=== PATIENT | female | born 1970 | race American Indian/Alaskan Native ===

== ENCOUNTER 2017-05-08 09:03 | Outpatient (CLI) | payer OTHER ==
--- NOTE | 2017-05-08 11:22 | Mammography Report ---
BILATERAL MAMMOGRAM with CAD: HISTORY: Cancer screening. Comparison study is dated February 18, 2016. FINDINGS: The breast tissue is heterogeneously dense, which could obscure detection of small masses (approximately 50%-75% glandular). No mass, distortion, suspicious calcification, or skin change is seen. IMPRESSION: Negative mammogram. There is no mammographic evidence of malignancy. RECOMMENDATION: Follow-up per ACS guidelines. BI-RADS CATEGORY: 1 = Negative ACR BI-RADS MAMMOGRAPHIC CODES: 0 = Needs additional imaging evaluation; 1 = Negative; 2 = Benign; 3 = Probably benign; 4 = Suspicious; 5 = Malignant; 6 = Known biopsy-proven malignancy COMMENT: 1. Dense breast tissue, i.e., adenosis, fibrocystic changes, etc., may obscure an underlying neoplasm. 2. Approximately 10% of cancers are not detected with mammography. 3. A negative mammography report should not delay biopsy if a clinically suspicious mass is present. COMMENT: Patient follow-up letters are generated in [employer].
== END 2017-05-08 09:04 | disposition home or self-care (01) ==
LOC: MAMMO 09:03
PROVIDERS: ATTEND Obstetrics & Gynecology
DX: Z12.31 Encounter for screening mammogram for malignant neoplasm of breast (principal)
CPT/HCPCS: 77067; G0202

== ENCOUNTER 2018-06-28 07:51 | Outpatient (CLI) | payer OTHER ==
--- NOTE | 2018-06-28 12:40 | Mammography Report ---
BILATERAL DIGITAL SCREENING MAMMOGRAM with CAD: 06/28/18 07:51:00 CLINICAL: Routine screening. COMPARISON:05/08/17 FINDINGS: The breasts are heterogeneously dense, which may obscure small masses. No mass, architectural distortion or suspicious calcifications. IMPRESSION: No mammographic evidence of malignancy. BI-RADS CATEGORY: 1 - - Negative RECOMMENDATION: Routine mammographic screening in one year. COMMENT: Patient follow-up letters are generated by our [employer] application.
== END 2018-06-28 07:52 | disposition home or self-care (01) ==
LOC: MAMMO 07:51
PROVIDERS: ATTEND Obstetrics & Gynecology
DX: Z12.31 Encounter for screening mammogram for malignant neoplasm of breast (principal)
CPT/HCPCS: 77067

== ENCOUNTER 2019-08-12 07:02 | Outpatient (CLI) | payer OTHER ==
--- NOTE | 2019-08-12 16:38 | Mammography Report ---
DIGITAL SCREENING MAMMOGRAM WITH CAD, 08/12/2019 INDICATION: Routine screening mammography. TECHNIQUE: Digital bilateral 2D mammography was obtained in the craniocaudal and mediolateral obliq ue projections. This examination was interpreted with the benefit of Computer-Aided Detection analysi s. COMPARISON: 06/28/2018 and 05/08/2017 FINDINGS: Breast Density: The breasts are heterogeneously dense, which may obscure small masses. Left inner focal asymmetry requires additional imaging. No architectural distortion or suspicious jocelyn cifications. kThere is no evidence of dominant mass, suspicious calcifications or architectural disto rtion in the right breast. IMPRESSION: A focal asymmetry requiring additional imaging. Recommend recall for left spot compressio n views and left breast ultrasound if needed. Follow up recommendation: Special View: Spot Category 0: Incomplete. Needs additional imaging evaluation and/or prior mammograms for comparison. A "normal" or negative report should not discourage follow up or biopsy of a clinically significant f inding. A written summary of these findings will be mailed to the patient. The patient will be entered into a mammography reporting system which will generate a reminder letter for the patient's next appointmen t at the appropriate interval. The [employer] recommends yearly mammograms starting at age 40 and continuing as l luciano as a woman is in good health. Breast MRI is recommended for women with an approximate 20-25% or greater lifetime risk of breast cancer, including women with a strong family history of breast or ova liana cancer or who have been treated for Hodgkin's disease. Signer Name: Morris Hernandez MD Signed: 08/12/2019 4:34 PM Workstation Name: [id number]
== END 2019-08-12 07:03 | disposition home or self-care (01) ==
LOC: MAMMO 07:02
PROVIDERS: ATTEND Obstetrics & Gynecology
DX: Z12.31 Encounter for screening mammogram for malignant neoplasm of breast (principal); Z88.1 Allergy status to other antibiotic agents
CPT/HCPCS: 77067

== ENCOUNTER 2019-09-09 08:16 | Outpatient (CLI) | payer OTHER ==
--- NOTE | 2019-09-10 09:10 | Ultrasound Report ---
LEFT DIGITAL DIAGNOSTIC MAMMOGRAM WITH CAD 09/09/2019 LEFT LIMITED BREAST ULTRASOUND INDICATION: Recall to evaluate a focal asymmetry. ABN MAMMO TECHNIQUE: Digital left mammographic imaging was performed. This examination was interpreted with jesusita hylton benefit of Computer-Aided Detection (CAD) analysis. COMPARISON: 08/12/19 FINDINGS: Breast Density: The breast is heterogeneously dense, which may obscure small masses. MAMMOGRAPHIC FINDINGS: Near complete effacement of mammographic asymmetries on spot compression views . Lateral and rolled CC views are negative. ULTRASOUND FINDINGS: Targeted ultrasound evaluation was performed of the area of interest. Ultrasou nd of the lower left breast was performed and demonstrated normal structures with no mass, cyst or carlton spicious shadowing. IMPRESSION: Negative mammogram and negative left breast ultrasound. Follow up recommendation: Routine yearly BI-RADS Category 1: Negative. A "normal" or negative report should not discourage follow up or biopsy of a clinically significant f inding. A written summary of these findings will be mailed to the patient. The patient will be entered into a mammography reporting system which will generate a reminder letter for the patient's next appointmen t at the appropriate interval. According to the [employer], yearly mammograms are recommended starting at age 40 and continuing as long as a woman is in good health. Breast MRI is recommended for women with an monica roximately 20-25% or greater lifetime risk of breast cancer, including women with a strong family his tory of breast or ovarian cancer and women who have been treated for Hodgkin's disease. Signer Name: Morris Hernandez MD Signed: 09/10/2019 9:05 AM Workstation Name: [id number]
== END 2019-09-09 08:17 | disposition home or self-care (01) ==
LOC: MAMMO 08:16
PROVIDERS: ATTEND Obstetrics & Gynecology
DX: R92.8 Other abnormal and inconclusive findings on diagnostic imaging of breast (principal)

== ENCOUNTER 2020-11-17 11:30 | Outpatient (CLI) | payer OTHER ==
--- NOTE | 2020-11-17 12:27 | Mammography Report ---
DIGITAL SCREENING MAMMOGRAM WITH CAD, 11/17/2020 CLINICAL INFORMATION / INDICATION: Routine screening mammography. SCREENING MAMMOGRAM TECHNIQUE: Digital bilateral 2D mammography was obtained in the craniocaudal and mediolateral obliqu e projections. This examination was interpreted with the benefit of Computer-Aided Detection analysis . COMPARISON: Prior mammograms 08/12/2019 and 06/28/2018 FINDINGS: Breast Density: The breasts are heterogeneously dense, which may obscure small masses. No dominant mass, suspicious calcifications, or architectural distortion in the left breast. There is a 2 cm asymmetric density seen in the lateral right breast, middle depth, on CC view only. T his likely localizes superiorly on the MLO view. IMPRESSION: 1. An asymmetric density in the right breast requires further evaluation with spot compression views and targeted ultrasound if needed. Follow up recommendation: Special View: Spot BI-RADS Category 0: Incomplete. Needs additional imaging evaluation and/or prior mammograms for tico santoyo. A "normal" or negative report should not discourage follow up or biopsy of a clinically significant f inding. A written summary of these findings will be mailed to the patient. The patient will be entered into a mammography reporting system which will generate a reminder letter for the patient's next appointmen t at the appropriate interval. The [employer] recommends yearly mammograms starting at age 40 and continuing as l luciano as a woman is in good health. Breast MRI is recommended for women with an approximate 20-25% or greater lifetime risk of breast cancer, including women with a strong family history of breast or ova liana cancer or who have been treated for Hodgkin's disease. Signer Name: Natalya Coburn MD Signed: 11/17/2020 12:22 PM Workstation Name: [id number]
== END 2020-11-17 11:31 | disposition home or self-care (01) ==
LOC: MAMMO 11:30
PROVIDERS: ATTEND Obstetrics & Gynecology
DX: Z12.31 Encounter for screening mammogram for malignant neoplasm of breast (principal)
CPT/HCPCS: 77067

== ENCOUNTER 2021-01-12 09:29 | Outpatient (CLI) | payer OTHER ==
--- NOTE | 2021-01-12 10:41 | Ultrasound Report ---
RIGHT DIGITAL DIAGNOSTIC MAMMOGRAM WITH CAD CONVENTIONAL, 01/12/2021 RIGHT LIMITED BREAST ULTRASOUND CLINICAL INFORMATION / INDICATION: Patient presents as a callback from screening mammogram for furthe r evaluation of an asymmetric density in the right breast. ABN MAMMO TECHNIQUE: Digital right mammographic imaging was performed. Spot compression views were obtained. Li mited ultrasound was performed. This examination was interpreted with the benefit of Computer-Aided D etection (CAD) analysis. COMPARISON: Prior mammogram 11/17/2020 FINDINGS: Breast Density: The breasts are heterogeneously dense, which may obscure small masses. MAMMOGRAPHIC FINDINGS: The previously described asymmetric density in the lateral right breast is les s conspicuous on additional views, most compatible with overlapping fibroglandular tissue. Targeted u ltrasound performed for confirmation. ULTRASOUND FINDINGS: Targeted ultrasound evaluation was performed of the area of interest. Targeted ultrasound was performed of the lateral right breast. There is an incidental 7 mm benign cyst in the 12:00 position located 6 cm from the nipple. There is no sonographic correlate for the previously qu estioned asymmetric density, confirming that this represents overlapping fibroglandular tissue. IMPRESSION: 1. The previously described asymmetric density is much less conspicuous on additional views and witho ut sonographic correlate, compatible with overlapping fibroglandular tissue. No suspicious mammograph ic or sonographic abnormality identified. Follow up recommendation: Back to schedule. BI-RADS Category 2: Benign. A "normal" or negative report should not discourage follow up or biopsy of a clinically significant f inding. A written summary of these findings will be mailed to the patient. The patient will be entered into a mammography reporting system which will generate a reminder letter for the patient's next appointmen t at the appropriate interval. According to the [employer], yearly mammograms are recommended starting at age 40 and continuing as long as a woman is in good health. Breast MRI is recommended for women with an monica roximately 20-25% or greater lifetime risk of breast cancer, including women with a strong family his tory of breast or ovarian cancer and women who have been treated for Hodgkin's disease. Signer Name: Natalya Coburn MD Signed: 01/12/2021 10:36 AM Workstation Name: [id number]
== END 2021-01-12 09:30 | disposition home or self-care (01) ==
LOC: MAMMO 09:29
PROVIDERS: ATTEND Obstetrics & Gynecology
DX: R92.8 Other abnormal and inconclusive findings on diagnostic imaging of breast (principal)

== ENCOUNTER 2021-12-16 12:21 | Outpatient (CLI) | payer OTHER | END 2021-12-16 12:22 | disposition home or self-care (01) | LOC: MAMMO 12:21 | PROVIDERS: ATTEND Obstetrics & Gynecology | DX: Z12.31 Encounter for screening mammogram for malignant neoplasm of breast (principal) | CPT/HCPCS: 77067 ==